=== PATIENT | male | born 1980 | race Caucasian/White ===

== ENCOUNTER 2018-06-01 18:20 | Emergency (ER) | payer SELFPAY ==
[2018-06-01] MEDS ORDERED: DIPHTH,PERTUSS(ACELL),TET 0.5 ML DISP.SYRIN IM ONE (18:28)
[2018-06-01 18:29] VITALS: BP 147/92; PULSE 80; TEMP 99; BMI 27.8
--- NOTE | 2018-06-01 18:38 | PDOC ---
Attending Attestation - Resident Resident Name: Griffin Ellison - ED Attending Attestation I have performed the following: I have examined & evaluated the patient, The case was reviewed & discussed with the resident, I agree w/resident's findings & plan, Exceptions are as noted - HPI HPI: 06/01/18 18:34 37 M with no PMH presents with laceration to R hand. Pt was moving a refrigerator today, and his hand got caught on a sharp edge. He suffered a single laceration to the dorsum of his hand. Denies any other injury. Pt applied pressure immediately, and the bleeding has been well controlled. Unknown tetanus status. - Physicial Exam PE: 06/01/18 18:36 GENERAL: Awake, alert, and fully oriented, in no acute distress. HEAD: No signs of trauma EYES: PERRLA, EOMI, sclera anicteric, conjunctiva clear ENT: Auricles normal inspection, hearing grossly normal, nares patent, oropharynx clear without exudates. Moist mucosa NECK: Nontender, no stepoffs, Normal ROM, supple, no lymphadenopathy, JVD, or masses LUNGS: Breath sounds equal, clear to auscultation bilaterally. No wheezes, and no crackles HEART: Regular rate and rhythm, normal S1 and S2, no murmurs, rubs or gallops ABDOMEN: Soft, nontender, normoactive bowel sounds. No guarding, no rebound. No masses EXTREMITIES: flexor and extensor tendons intact, Normal range of motion, no edema. No clubbing or cyanosis. No cords, erythema, or tenderness NEUROLOGICAL: Cranial nerves II through XII intact. 5/5 strength and sensation in all extremities, Normal speech, normal gait, normal cerebellar function SKIN: + shallow 3cm laceration to dorsum of R hand overlying 1st metacarpal, no bony tenderness or deformity - Medical Decision Making 06/01/18 18:37 37 M with laceration to R hand. - Tdap - Lac repair 06/01/18 19:00 Lac repaired, tdap administered Pt is well appearing, with normal vitals. Clinically stable for DC at this time. I discussed the physical exam findings, ancillary test results and final diagnoses with the patient. I answered all of the patient's questions. The patient was satisfied with the care received and felt comfortable with the discharge plan and treatment plan. The patient agrees to follow up with the primary care physician within 24-72 hours.
--- NOTE | 2018-06-01 19:02 | PDOC ---
History of Present Illness - General Chief Complaint: Laceration Stated Complaint: RT HAND LACERATION Time Seen by Provider: 06/01/18 18:27 History Source: Patient Exam Limitations: No Limitations - History of Present Illness Initial Comments: 06/01/18 18:57 THe patient is a 37M with no PMH who presents to the ER after sustaining a laceration while moving a refrigerator. He states it was on a sharp surface but he does not remember what it was. He denies any other abrasions, lacerations, or injuries. He does not know his last tetanus status. Past History - Past Medical History Allergies/Adverse Reactions: Allergies Allergy/AdvReac Type Severity Reaction Status Date / Time ibuprofen [From Advil] Allergy Verified 06/01/18 18:28 Home Medications: Ambulatory Orders NK [No Known Home Medication] 06/01/18 COPD: No Other medical history: DENIES - Suicide/Smoking/Psychosocial Hx Smoking History: Never smoked Have you smoked in the past 12 months: No Information on smoking cessation initiated: No Hx Alcohol Use: (occasional) Substance Use Type: None Review of Systems - Review of Systems Able to Perform ROS?: Yes Is the patient limited Portuguese proficient: No Constitutional: No: Chills, Fever Integumentary: Yes: Other (Laceration over L dorsal surface of hand) *Physical Exam - Vital Signs Last Vital Signs Temp Pulse Resp BP Pulse Ox 99 F 80 18 147/92 99 06/01/18 18:20 06/01/18 18:20 06/01/18 18:20 06/01/18 18:20 06/01/18 18:20 - Physical Exam General Appearance: Yes: Nourished, Appropriately Dressed. No: Apparent Distress HEENT: positive: Normal Voice, Hearing Grossly Normal Respiratory/Chest: negative: Respiratory Distress, Accessory Muscle Use Integumentary: positive: Other (2cm superficial curvilinear laceration) Procedures - Laceration/Wound Repair Right Dorsal Hand Wound Length: to 2.5 cm Wound Explored: clean Wound's Depth, Shape: superficial, linear Irrigated w/ Saline: Yes Betadine Prep: No Anesthesia: 1% Lidocaine Amount of Anesthetic (ccs): 1 Wound Debrided: minimal Wound Repaired With: Sutures Suture Size/Type: 4:0 Number of Sutures: 6 Layer Closure: No Sterile Dressing Applied: Yes Splint Applied: No Sling Applied: No Medical Decision Making - Medical Decision Making 06/01/18 19:04 The patient is a 37M with no PMH who presents after sustaining a laceration on the dorsal surface of his R hand. Laceration closed in a sterile manner with 6 4 -0 nylon sutures. I have given the patient instructions on what to return for and to return in 7-10 days for removal. I have updated tetanus. *DC/Admit/Observation/Transfer Diagnosis at time of Disposition: Laceration - Discharge Dispostion Disposition: HOME Condition at time of disposition: Stable Decision to Admit order: No - Referrals - Patient Instructions Printed Discharge Instructions: DI for Laceration Repair Additional Instructions: Fuiste visto por juan laceracin y se lo sutur. Por favor, mantngalo limpio y seco emely 24 horas. Despus de eso, lvelo suavemente con agua y jabn. Regrese a la maxine de emergencias si comienza a karri enrojecimiento, fiebre, escalofros o drenaje similar al pus del sitio. Por favor regrese en 7-10 quintana para que se elimine. You were seen for a laceration and had it sutured. Please keep it clean and dry for 24 hours. After that, gently wash it with soap and water. Return to the ER if you start seeing redness, fevers, chills, or pus-like drainage from the site. Please return in 7-10 days to have it removed. Print Language: [place] - Post Discharge Activity
== END 2018-06-01 19:20 | disposition home or self-care (01) ==
LOC: FER 18:20
PROC: 0HQFXZZ Repair Right Hand Skin, External Approach (ICD-10-PCS; principal; 2018-06-01)
PROC: 3E0234Z Introduction of Serum, Toxoid and Vaccine into Muscle, Percutaneous Approach (ICD-10-PCS; 2018-06-01)
DX: S61.411A Laceration without foreign body of right hand, initial encounter (principal); W22.8XXA Striking against or struck by other objects, initial encounter; Y93.89 Activity, other specified; Y92.9 Unspecified place or not applicable
CPT/HCPCS: 90715; 99284-25

== ENCOUNTER 2018-06-09 08:32 | Emergency (ER) | payer SELFPAY ==
[2018-06-09 08:38] VITALS: BP 143/98; PULSE 68; TEMP 98.4; BMI 27.8
--- NOTE | 2018-06-09 08:49 | PDOC ---
Suture Removal/Wound Check HPI - History of Present Illness Chief Complaint: Suture/Staple Removal(Here) Stated Complaint: suture removal Time Seen by Provider: 06/09/18 08:45 History Source: Yes: Patient Exam Limitations: Yes: No Limitations Treated at: [facility] ED Date of Last ED visit: 05/18/18 - Previous ED Treatment Type of procedure performed on last visit: Yes: Laceration Repair Tetanus Immunization: Yes: Up to Date - Onset of Previous Treatment Comment:: 06/09/18 08:46 37-year-old male no past medical history here today for suture removal following a laceration to his right hand. Patient states his sutures were placed 8 days ago denies any redness swelling no other current complaints has been applying bacitracin twice daily as instructed On exam incision is clean dry intact sutures are in place no surrounding erythema or other signs of infection hand is neurovascularly intact distally Sutures removed tolerated well DC home follow up only as needed Past History - Past Medical History Allergies/Adverse Reactions: Allergies Allergy/AdvReac Type Severity Reaction Status Date / Time ibuprofen [From Advil] Allergy Verified 06/09/18 08:33 Home Medications: Ambulatory Orders NK [No Known Home Medication] 06/01/18 COPD: No DVT: No - Immunization History Immunization Up to Date: Yes - Suicide/Smoking/Psychosocial Hx Smoking History: Never smoked Have you smoked in the past 12 months: No Information on smoking cessation initiated: No Hx Alcohol Use: No Drug/Substance Use Hx: No Substance Use Type: None Suture Removal/Wound Check PE - Physical Exam Comments: 06/09/18 08:49 Awake alert no acute distress Skin is warm and dry sutures are clean dry and intact. There is no surrounding erythema no redness swelling no exudate distally the patient's digits are neurovascularly intact *Review of Systems - Review of Systems Constitutional: No: Chills, Diaphoresis, Fever Respiratory: No: Orthopnea, Shortness of Breath : No: Burning Musculoskeletal: No: Muscle Weakness Neurological: No: Numbness All Other Systems: Reviewed and Negative *Physical Exam - Vital Signs Last Vital Signs Temp Pulse Resp BP Pulse Ox 98.4 F 68 20 143/98 100 06/09/18 08:32 06/09/18 08:32 06/09/18 08:32 06/09/18 08:32 06/09/18 08:32 Medical Decision Making - Medical Decision Making 06/09/18 08:50 sutures removed no signs of infectionDC home *DC/Admit/Observation/Transfer Diagnosis at time of Disposition: Visit for suture removal - Discharge Dispostion Disposition: HOME Condition at time of disposition: Improved - Referrals - Patient Instructions Printed Discharge Instructions: DI for Suture Removal Additional Instructions: Follow-up with her primary care doctor as needed. Keep scar out of sun to avoid future scarring. You may wash with warm soap and water cover only as needed - Post Discharge Activity
== END 2018-06-09 08:52 | disposition home or self-care (01) ==
LOC: FER 08:32
DX: Z48.02 Encounter for removal of sutures (principal)
CPT/HCPCS: 99281-25

== ENCOUNTER 2019-08-11 16:28 | Emergency (ER) | payer OTHER ==
[2019-08-11 16:41] VITALS: BP 146/96; PULSE 99; TEMP 99; BMI 27.5
--- NOTE | 2019-08-11 16:51 | PDOC ---
History of Present Illness <Kyler Mora - Last Filed: 08/11/19 18:16> - General History Source: Patient Exam Limitations: No Limitations - History of Present Illness Initial Comments: 39 year old male with PMH HLD, panic disorder presented to ED for left knee pain s/p fall today. Pt reported he was walking down the sidewalk, it was uneven , and he tripped and fell to the ground, onto his right knee. He reported seeing his patella moved over to the middle, it spontaneously resolved, but then happened again when he beared weight. He reported currently the patella is in the usual location now. He reported his pain is mostly to the internal knee, aggravated by bearing weight, alleviated by resting on the bed. He denied numbness, tingling, chest pain, hip pain, shortness of breath, head injury, LOC , vomiting. Allergies: NSAIDs (periorbital swelling) ROS General: denied fever, chills, generalized weakness. HEENT: denied sore throat, rhinorrhea, ear pain. Cardiovascular: denied chest pain, palpitations, syncope, diaphoresis. Respiratory: denied shortness of breath, cough, sputum production, hemoptysis. Gastrointestinal: denied abdominal pain, nausea, vomiting, diarrhea, constipation, blood in stool. Genitourinary: denied dysuria, increased urinary frequency, hematuria, urinary incontinence, flank pain. Back: denied back pain. Musculoskeletal: admitted to knee pain, knee swelling. Neurological: denied headache, dizziness, numbness, tingling, weakness. Integumentary: denied rash, laceration, abrasion. Hematologic/Lymphatic: denied bruising or bleeding. PE Constitutional: Well-nourished, Well-developed, appearing stated age. HEENT: head is normocephalic, atraumatic. EOMI. PERRLA. Neck: supple. Full ROM. no midline c-spine tenderness to palpation. No step offs. Cardiovascular: regular heart rhythm. no murmurs. no pericardial friction rub. Chest wall: No tenderness to palpation of anterior chest wall. No deformity to anterior chest wall. Respiratory: clear to auscultation bilaterally. no crackles, rhonchi or wheezing. no stridor. Gastrointestinal: soft, nontender. normal bowel sounds. no rebound, guarding, masses. Back: no midline T-spine or L-spine tenderness to palpation. No step offs. Pelvis: lower extremities equal in length without external rotation. No hip tenderness to palpation. Extremities: peripheral pulses intact. no lower extremity edema. Left knee: swollen. tender to MCL and LCL areas. Negative anterior and posterior drawer testing. Positive Valgus testing. Negative varus testing. no tenderness over tibial plateau. pt is able to actively flex and extend his knee without support. Neurological: CN 2-12 grossly intact. moves all four extremities. Psych: awake, alert, oriented x3. follows commands. answers questions appropriately. <Sona Steiner - Last Filed: 08/12/19 06:40> - General Chief Complaint: Injury Stated Complaint: LEFT KNEE INJURY Time Seen by Provider: 08/11/19 16:51 Past History <Kyler Mora - Last Filed: 08/11/19 18:16> - Past Medical History COPD: No DVT: No Hypercholesterolemia: Yes Psychiatric Problems: Yes (PANIC ATTACKS) - Immunization History Immunization Up to Date: Yes - Psycho Social/Smoking Cessation Hx Smoking History: Never smoked Have you smoked in the past 12 months: No Information on smoking cessation initiated: No Hx Alcohol Use: No Drug/Substance Use Hx: No Substance Use Type: None <Sona Steiner - Last Filed: 08/12/19 06:40> - Past Medical History Allergies/Adverse Reactions: Allergies Allergy/AdvReac Type Severity Reaction Status Date / Time ibuprofen [From Advil] Allergy Verified 08/11/19 16:29 Home Medications: Ambulatory Orders Duloxetine HCl [Cymbalta] 30 mg PO DAILY 08/11/19 Simvastatin 20 mg PO DAILY 08/11/19 *Physical Exam - Vital Signs Last Vital Signs Temp Pulse Resp BP Pulse Ox 99 F 99 H 18 146/96 98 08/11/19 16:28 08/11/19 16:28 08/11/19 16:28 08/11/19 16:28 08/11/19 16:28 <Kyler Mora - Last Filed: 08/11/19 18:16> - Vital Signs Last Vital Signs Temp Pulse Resp BP Pulse Ox 99 F 99 H 18 146/96 98 08/11/19 16:28 08/11/19 16:28 08/11/19 16:28 08/11/19 16:28 08/11/19 16:28 <Sona Steiner - Last Filed: 08/12/19 06:40> ED Treatment Course - Medications Given in the ED: ED Medications Discontinued Medications Generic Name Dose Route Start Last Admin Trade Name Veronica PRN Reason Stop Dose Admin Acetaminophen 975 mg 08/11/19 16:58 08/11/19 17:26 Tylenol - PO 08/11/19 16:59 975 mg ONCE ONE Administration <Kyler Mora - Last Filed: 08/11/19 18:16> Medical Decision Making - Medical Decision Making 39 year old male with above PMH presented to ED for right knee pain s/p mechanical fall today. Initial Vital Signs Temp Pulse Resp BP Pulse Ox 99 F 99 H 18 146/96 98 08/11/19 16:28 08/11/19 16:28 08/11/19 16:28 08/11/19 16:28 08/11/19 16:28 Afebrile. Borderline tachycardia. Hypertensive. No hypoxia on room air. No tachypnea. Labs ordered: none Imaging ordered: Knee XR Medications ordered: Tylenol 975 mg PO once -NSAID allergic XR of knee shows no acute fracture/dislocation by my and Dr. Mora's read. -Pending official report. Pt placed in knee immobilizer, given crutches. Pt discharged with ortho F/U. <Sona Steiner - Last Filed: 08/12/19 06:40> Discharge - Discharge Information Problems reviewed: Yes - Admission No <Kyler Mora - Last Filed: 08/11/19 18:16> - Discharge Information Problems reviewed: Yes - Admission No <Sona Steiner - Last Filed: 08/12/19 06:40> - Discharge Information Clinical Impression/Diagnosis: Knee pain, left Qualifiers: Chronicity: acute Qualified Code(s): M25.562 - Pain in left knee Condition: Stable Disposition: HOME - Follow up/Referral Referrals: Petar Mckinney [Primary Care Provider] - Too Chu MD [Staff Physician] - - Patient Discharge Instructions Patient Printed Discharge Instructions: DI for Knee Pain Additional Instructions: Regrese al departamento de emergencias de inmediato con CUALQUIER sntoma nuevo , persistente o que empeore, incluido un empeoramiento del dolor, entumecimiento , hormigueo, debilidad o cualquier otro problema. Debe realizar un seguimiento con un mdico ortopdico para juan evaluacin adicional, aunque alarcon radiografa no muestra ninguna fractura, es posible que tenga juan lesin ligamentosa. DEBE llamar y hacer un seguimiento con un mdico ortopdico en 2-3 quintana para juan evaluacin adicional de mc sntomas. Los resultados fueron discutidos con usted. Asegrese de que alarcon mdico revise los resultados de alarcon evaluacin de emergencia. Alarcon visita al Departamento de Emergencia no est completa sin un seguimiento con alarcon mdico. Return to the emergency department immediately with ANY new, persistent or worsening symptoms Including worsening pain, numbness tingling weakness or any other concerns. You need to follow-up with an orthopedic doctor for further evaluation although your x-ray does not show any fractures you may have a Ligamentous injury. You MUST call and follow up with an orthopedic doctor in 2-3 days for further evaluation of your symptoms. Results were discussed with you. Please make sure your doctor reviews the results of your emergency evaluation. Your Emergency Department visit is not complete without a follow up with your doctor. Print Language: VIETNAMESE - Post Discharge Activity Work/Back to School Note: Back to Work
[2019-08-11] MEDS ORDERED: ACETAMINOPHEN 325 MG TABLET (FP) PO ONE (16:58)
--- NOTE | 2019-08-11 17:11 | PDOC ---
Attending Attestation - Resident Resident Name: Sona Steiner - ED Attending Attestation I have performed the following: I have examined & evaluated the patient, The case was reviewed & discussed with the resident, I agree w/resident's findings & plan, Exceptions are as noted - HPI HPI: 08/11/19 17:07 39y M hx of hl presents sp fall to the left, pt notes it looked like his knee cap went medially, it spontanoesly relocated and seemed to dislocate again when he stood up. Pt denies any numbnes/tingligng/weakness, head injury, neck pain, back pain, chest pain. Pt notse his pain is not very bad, but notseit is difficult tow alk because it seems to give out when he walks. mild ttp to inferior knee. no significant tenderness of anterior knee mild pain with valgus anterior/osterior drawer intact
[2019-08-11] MEDS ORDERED: ACETAMINOPHEN 325 MG TABLET (FP) ONE (17:25)
== END 2019-08-11 18:47 | disposition home or self-care (01) ==
LOC: FER 16:28
DX: M25.562 Pain in left knee (principal); F41.0 Panic disorder [episodic paroxysmal anxiety]; E78.5 Hyperlipidemia, unspecified; W01.0XXA Fall on same level from slipping, tripping and stumbling without subsequent striking against object, initial encounter; Y93.01 Activity, walking, marching and hiking; Y92.480 Sidewalk as the place of occurrence of the external cause
CPT/HCPCS: 73562-TC-LT-FY; 99283-25

== ENCOUNTER 2019-10-21 20:29 | Emergency (ER) | payer OTHER ==
[2019-10-21 20:51] VITALS: TEMP 98.5; BMI 28.7
[2019-10-21 21:08] LABS: CALCIUM 9.5 mg/dl (8.5-10); CREATININE 0.9 mg/dl (0.55-1.3); POTASSIUM 3.2 mmol/L (3.5-5.1)
[2019-10-21 21:22] VITALS: BP 150/90; PULSE 90
--- NOTE | 2019-10-21 21:30 | PDOC ---
Documentation entered by Masha Abreu SCRIBE, acting as scribe for Daniel Mann MD. Daniel Mann MD: This documentation has been prepared by the scribe, Masha Abreu SCRIBE, under my direction and personally reviewed by me in its entirety. I confirm that the documentation accurately reflects all work, treatment, procedures, and medical decision making performed by me. History of Present Illness - General Chief Complaint: Abnormal Lab Results (Outside) Stated Complaint: HIGH POTASSIUM History Source: Patient Exam Limitations: No Limitations - History of Present Illness Initial Comments: 10/21/19 20:40 The patient is a 39-year-old male with a past medical history significant for HLD who presents to the emergency department with abnormal lab values. The patient reports he is scheduled for an ACL repair later this month, and he had pre-op lab work down, which was significant for potassium of 6.3. The patient reports he was told to go to the ER for a repeat lab work. Allergies: ibuprofen PCP: Petar Jaime. Past History - Past Medical History Allergies/Adverse Reactions: Allergies Allergy/AdvReac Type Severity Reaction Status Date / Time ibuprofen [From Advil] Allergy Verified 10/21/19 20:30 Home Medications: Ambulatory Orders Duloxetine HCl [Cymbalta] 30 mg PO DAILY 08/11/19 Simvastatin 20 mg PO DAILY 08/11/19 Lisinopril 5 mg PO DAILY 10/21/19 Pantoprazole Sodium 40 mg PO DAILY 10/21/19 COPD: No DVT: No Hypercholesterolemia: Yes Psychiatric Problems: Yes (PANIC ATTACKS) - Immunization History Immunization Up to Date: Yes - Psycho Social/Smoking Cessation Hx Smoking History: Never smoked Have you smoked in the past 12 months: No Hx Alcohol Use: No Drug/Substance Use Hx: No Substance Use Type: None Review of Systems - Review of Systems Able to Perform ROS?: Yes Comments:: 10/21/19 20:40 Constitutional - Pt denies Fever, Chills, weakness, HEENT: denies vision changes, sore throat Respiratory: Denies cough, sob, hemoptysis Cardiac: denies chest pain, palpitations, light headedness, leg swelling Abd/GI: denies abd pain, nausea, vomiting, blood per rectum, melena, diarrhea : denies dysuria, frequency, discharge Musculskelatal - denies back pain, joint swelling skin - denies bruising, erythema, rash neurological: denies headache, numbness, focal weakness, tingling, ataxia, weakness hematologic: denies anemia, easy bruising, easy bleeding. *Physical Exam - Vital Signs Last Vital Signs Temp Pulse Resp BP Pulse Ox 98.5 F 90 18 150/90 98 10/21/19 20:29 10/21/19 21:21 10/21/19 21:21 10/21/19 21:21 10/21/19 21:21 - Physical Exam 10/21/19 20:46 CONSTITUTIONAL: Well-appearing; well-nourished; in no apparent distress HEAD: Normocephalic; atraumatic EYES: PERRL; EOM intact ENMT: External appears normal NECK: Supple; non-tender CARD: Normal S1, S2; no murmurs, rubs, or gallops RESP: breath sounds clear and equal bilaterally; no wheezes, rhonchi, or rales ABD: Soft, non-distended; non-tender EXT: Normal ROM in all four extremities; non-tender SKIN: Warm, dry, no rash NEURO: No focal neurological deficiencies. Heart Score/ECG Review - ECG Impressions Comment:: 10/21/19 20:40 Sinus at 105 Normal axis Normal Intervals. No U-waves. ED Treatment Course - LABORATORY CBC & Chemistry Diagram: 10/21/19 20:45 - ADDITIONAL ORDERS Additional order review: Laboratory Results 10/21/19 10/21/19 20:45 20:45 Sodium 137 Potassium 3.2 L Chloride 101 Carbon Dioxide 26 Anion Gap 10 BUN 15.0 Creatinine 0.9 Est GFR (CKD-EPI)AfAm 125.13 Est GFR (CKD-EPI)NonAf 107.97 Random Glucose 119 H Calcium 9.5 Creatine Kinase 113 Troponin I < 0.03 Medical Decision Making - Medical Decision Making 10/22/19 06:44 mild hypokalemia no need for repletion; continue acei vs improved on reassessment Discharge - Discharge Information Problems reviewed: Yes Clinical Impression/Diagnosis: Hypokalemia Condition: Stable Disposition: HOME - Follow up/Referral Referrals: Petar Mckinney [Primary Care Provider] - Call tomorrow - Patient Discharge Instructions Patient Printed Discharge Instructions: DI for Hypokalemia - Post Discharge Activity
--- NOTE | 2019-10-25 12:16 | EKG ---
Test Reason : Blood Pressure : / mmHG Vent. Rate : 105 BPM Atrial Rate : 105 BPM P-R Int : 150 ms QRS Dur : 094 ms QT Int : 340 ms P-R-T Axes : 065 047 019 degrees QTc Int : 449 ms SINUS TACHYCARDIA NONSPECIFIC ST ABNORMALITY NO PREVIOUS ECGS AVAILABLE Confirmed by CAMERON HUSSEIN MD ([id number]) on 10/25/2019 12:15:51 PM Referred By: Confirmed By:CAMERON HUSSEIN MD
== END 2019-10-21 21:28 | disposition home or self-care (01) ==
LOC: FER 20:29
DX: E87.6 Hypokalemia (principal); Z88.8 Allergy status to other drugs, medicaments and biological substances; F41.0 Panic disorder [episodic paroxysmal anxiety]
CPT/HCPCS: 36415; 80048; 82550; 84484; 93005; 99284-25

== ENCOUNTER 2021-11-10 20:39 | Emergency (ER) | payer SELFPAY ==
[2021-11-10 20:49] VITALS: BMI 30.8
[2021-11-10 21:01] VITALS: BP 153/94; PULSE 81; TEMP 99.6
== END 2021-11-10 21:42 | disposition home or self-care (01) ==
LOC: FER 20:39
DX: J01.90 Acute sinusitis, unspecified (principal); I10 Essential (primary) hypertension
CPT/HCPCS: 99281-25